=== PATIENT | female | born 1995 | race Caucasian/White ===

== ENCOUNTER 2018-05-10 05:43 | Inpatient (IN) | payer MEDICAID, OTHER ==
[2018-05-10] VITALS (9 sets, daily range): BP systolic 104–121; BP diastolic 46–69
[~2018-05-10] VITALS: Ht 165.1 cm; Wt 106.6 kg
--- NOTE | 2018-05-10 05:56 | NUR ---
TO ER BED 1 C/O GENERALIZED RT ABDOMINAL PAIN SINCE EARLIER THIS MORNING. AA/OX X4. +N/V/-D. SKIN PALE, WARM, MOIST. +GAURDING TO STOMACH, PAIN RADIATES TO BACK. 7/10 PAIN. NO S/S SOB. AMBULATED TO BED WITH STABLE GAIT. MOVES ALL EXTREMITIES WELL. NAD. VSS. STABLE CONIDION. WILL CONTINUE TO MONITOR.
[2018-05-10] MEDS ORDERED: ONDANSETRON HCL/PF 4 MG/2 ML VIAL ONE (06:22)
[2018-05-10] MEDS ORDERED: MORPHINE SULFATE INJ 4 MG/ML DISP.SYRIN ONE (06:22)
[2018-05-10] MEDS ORDERED: ONDANSETRON HCL/PF 4 MG/2 ML VIAL IVP ONE (06:30)
[2018-05-10] MEDS ORDERED: IV NS 0.9% 1,000 ML BAG IV ONE (06:30)
[2018-05-10] MEDS ORDERED: MORPHINE SULFATE INJ 2 MG/ML DISP.SYRIN IV ONE (06:30)
[2018-05-10 06:39] LABS: APPEARANCE,URINE SL CLOUDY (CLEAR); BILIRUBIN,URINE NEGATIVE (NEGATIVE); BLOOD, URINE NEGATIVE Ery/uL (NEGATIVE); COLOR,URINE YELLOW (YELLOW); KETONES,URINE NEGATIVE (NEGATIVE); LEUKOCYTE ESTERASE ,URINE NEGATIVE (NEGATIVE); NITRITE, URINE NEGATIVE (NEGATIVE); PROTEIN,URINE NEGATIVE (NEGATIVE); UGLUCOSE NEGATIVE (NEGATIVE); UROBILINOGEN,URINE 0.2 EU/dL (0.2)
[2018-05-10 06:41] LABS: BASOPHILS # (AUTO) 0.1 /CMM (0.0-0.2); BASOPHILS % (AUTO) 0.8 % (0.0-2.0); EOSINOPHILS % (AUTO) 0.5 % (0.0-6.0); HEMATOCRIT 34 % (33-45); HEMOGLOBIN 10.9 g/dL (11.5-14.8); LYMPHOCYTES # (AUTO) 1.3 /CMM (0.8-4.8); LYMPHOCYTES % (AUTO) 9.8 % (20.0-44.0); MEAN CORPUSCULAR HGB CONC 32 g/dl (31.0-36.0); MEAN CORPUSCULAR VOLUME 81 fL (82-100); MONOCYTES # (AUTO) 0.5 /CMM (0.1-1.30); NEUTROPHILS # (AUTO) 11.2 /CMM (1.8-8.9); NEUTROPHILS % (AUTO) 84.9 % (43.0-81.0); PLATELET COUNT (AUTO) 333 /CMM (150-450); RDW COEFFICIENT OF VARIATION 15.9 (11.5-15.0); RED BLOOD CELL COUNT(AUTO) 4.25 MIL/uL (4.0-5.2); WHITE BLOOD COUNT (AUTO) 13.3 K/uL (4.3-11.0)
[2018-05-10 06:48] LABS: CALCIUM, SERUM 9.4 mg/dL (8.5-10.1); CREATININE 0.7 mg/dL (0.6-1.3); POTASSIUM 3.9 mmol/L (3.5-5.1)
[2018-05-10 06:54] LABS: ALBUMIN 3.8 g/dL (3.4-5.0); BILIRUBIN,TOTAL 0.3 mg/dL (0.2-1.0); TOTAL PROTEIN, SERUM 8.3 g/dL (6.4-8.2)
[2018-05-10] MEDS ORDERED: HYDROMORPHONE 1 MG/1 ML DISP.SYRIN ONE (06:59)
[2018-05-10] MEDS ORDERED: HYDROMORPHONE INJ 2 MG/ML DISP.SYRIN IV ONE (07:00)
--- NOTE | 2018-05-10 07:04 | NUR ---
RESTING COMFORTABLY WITH FAMILY AT BEDSIDE. NAD. VSS. STABLE CONDITION. WILL CONTINUE TO MONITOR.
--- NOTE | 2018-05-10 07:14 | NUR ---
ENDORSED TO ON COMING SHIFT DANELLE MILLER. PT STABLE CONDITION. VSS. NAD.
--- NOTE | 2018-05-10 07:22 | NUR ---
BROUGHT TO CT
[2018-05-10] MEDS ORDERED: PIPERACILLIN /TAZOBACTAM 3.375 G in IV D5W 50 ML IV ONE (08:00)
--- NOTE | 2018-05-10 08:15 | NUR ---
paged : [employer] - [facility] paged: Dr. Jermaine Marcial - paged - left a message on his phone
[2018-05-10] MEDS ORDERED: IV NS 0.9% 1,000 ML IV PRN (08:26)
[2018-05-10] MEDS ORDERED: ONDANSETRON HCL/PF 4 MG/2 ML VIAL IVP PRN (08:30)
[2018-05-10] MEDS ORDERED: ACETAMINOPHEN 325 MG TABLET PO PRN (08:30)
[2018-05-10] MEDS ORDERED: Z GUARD REMEDY 2 OZ OINT TP PRN (08:30)
[2018-05-10] MEDS ORDERED: HYDROCODONE/APAP 5/325MG 1 EACH TABLET PO PRN (08:30)
[2018-05-10] MEDS ORDERED: ZOLPIDEM TARTRATE 5 MG TABLET PO PRN (08:30)
[2018-05-10] MEDS ORDERED: MAG HYDROX/AL HYDROX/SIMETH 30 ML UDC PO PRN (08:30)
[2018-05-10] MEDS ORDERED: MAGNESIUM HYDROXIDE 30 ML UDC PO PRN (08:30)
--- NOTE | 2018-05-10 08:43 | NUR ---
REPORT GIVEN TO JOSE MCCLENDON FOR FLOR
--- NOTE | 2018-05-10 09:00 | NUR ---
MS AIRCRAFT FUELER NOTE RECEIVED PT FROM ER VIA [employer]. PT IS ALERT AND ORIENTED X 4. BREATHING IS EVEN AND UNLABORED ON 2 LC NC. PT DENIES CHEST PAIN AND SOB, REPORTS NAUSEA AND PAIN LEVEL 6/10 IN THE RLQ, AGGRAVATED BY MOVEMENT. L HAND #18G IV IS SALINE LOCKED, CLEAN, DRY AND INTACT AND WITHOUT REDNESS OR SWELLING. ID BAND CHECKED AND PLACED ON PT, ALL BELONGINGS ACCOUNTED FOR. NPO STATUS IS MAINTAINED, PENDING ADMISSION ORDERS.
[2018-05-10] MEDS ORDERED: MORPHINE SULFATE INJ 2 MG/ML DISP.SYRIN IVP PRN (10:00)
[2018-05-10] MEDS: IV NS 0.9% 1,000 ML IV PRN (10:22)
[2018-05-10] MEDS ORDERED: FENTANYL PF 100MCG/2ML AMPUL ONE (12:35)
[2018-05-10] MEDS ORDERED: ROCURONIUM BROMIDE 50 MG/5 ML ONE (12:36)
[2018-05-10] MEDS ORDERED: METOCLOPRAMIDE HCL 10 MG/2 ML VIAL ONE (12:36)
[2018-05-10] MEDS ORDERED: MIDAZOLAM HCL 2 MG/2ML VIAL ONE (12:36)
[2018-05-10] MEDS ORDERED: ANESTHESIA TRAY IN PYXIS 1 EA TRAY MC ONE (12:53)
[2018-05-10] MEDS ORDERED: LIDOCAINE 1% INJ 50 ML MDV IJ ONE (12:54)
[2018-05-10] MEDS: PIPERACILLIN /TAZOBACTAM 4.5 G in IV D5W 50 ML IV SCH ×3 (12:54→23:02)
[2018-05-10] MEDS ORDERED: BUPIVACAINE MPF 0.5% W/EPI INJ 30 ML VIAL ONE (12:55)
[2018-05-10] MEDS ORDERED: LIDOCAINE HCL/PF 1% 30 ML SDV ONE (12:55)
[2018-05-10 13:40] LABS: INR 0.96 (0.87-1.13)
--- NOTE | 2018-05-10 14:00 | NUR ---
MS RN PT OFF UNIT PT OFF UNIT FOR SURGERY. CONSENT IS SIGNED, VS STABLE, PRE OP CHECK LIST COMPLETE AND PLACED IN CHART.
--- NOTE | 2018-05-10 16:15 | NUR ---
MS RN PT BACK FROM SURGERY PT BACK FROM SURGERY. VS STABLE, REPORTS PAIN 0/10. PENDING POST OP ORDERS. WILL CONTINUE TO MONITOR.
--- NOTE | 2018-05-10 19:27 | NUR ---
MS RN CLOSING NOTE PT IN BED SLEEPING, BREATHING IS EVEN AND UNLABORED ON ROOM AIR, NO SIGNS OF ACUTE DISTRESS AT THIS TIME. R FA #20G IV IS INFUSING NS @ 125ML/HR WITHOUT REDNESS OR SWELLING. BED IS LOCKED AND IN LOWEST POSITION, SIDE RAILS UP X2, CALL LIGHT WITHIN REACH. ENDORSED TO CRYPTOGRAPHIC VULNERABILITY ANALYST RN FOR CONTINUITY OF CARE.
--- NOTE | 2018-05-10 19:30 | NUR ---
MS RN OPENING NOTES Received patient asleep on Semi-Benson's position with patent peripheral IV line RFA G#20 with Ns infusing well @ 125ml/hr as ordered. No signs of discomfort noted at this time, breathing even and unlabored, on RA. Call light at easy reach. Will continue to monitor accordingly.
[2018-05-11] MEDS: IV NS 0.9% 1,000 ML IV PRN ×2 (00:59→17:07)
[2018-05-11] MEDS: PIPERACILLIN /TAZOBACTAM 4.5 G in IV D5W 50 ML IV SCH ×4 (05:14→23:31)
--- NOTE | 2018-05-11 06:47 | NUR ---
MS RN CLOSING NOTES Patient asleep on semi-Benson's position with patent peripheral IV line RFA G#20 with NS infusing well @ 125ml/hr as ordered. Denies discomfort at this time. All needs attended. Kept clean, dry and comfortable. Endorsed to the next shift.
[2018-05-11 07:08] LABS: BASOPHILS % (AUTO) 0.1 % (0.0-2.0); EOSINOPHILS % (AUTO) 0.1 % (0.0-6.0); HEMATOCRIT 30 % (33-45); HEMOGLOBIN 9.9 g/dL (11.5-14.8); LYMPHOCYTES # (AUTO) 1.3 /CMM (0.8-4.8); LYMPHOCYTES % (AUTO) 14.6 % (20.0-44.0); MEAN CORPUSCULAR HGB CONC 33 g/dl (31.0-36.0); MEAN CORPUSCULAR VOLUME 81 fL (82-100); MONOCYTES # (AUTO) 0.6 /CMM (0.1-1.30); MONOCYTES % (AUTO) 7.5 % (2.0-12.0); NEUTROPHILS # (AUTO) 6.7 /CMM (1.8-8.9); NEUTROPHILS % (AUTO) 77.7 % (43.0-81.0); PLATELET COUNT (AUTO) 291 /CMM (150-450); RDW COEFFICIENT OF VARIATION 16.4 (11.5-15.0); RED BLOOD CELL COUNT(AUTO) 3.75 MIL/uL (4.0-5.2); WHITE BLOOD COUNT (AUTO) 8.6 K/uL (4.3-11.0)
--- NOTE | 2018-05-11 07:30 | NUR ---
RN OPENING NOTES RECEIVED PATIENT IN BED RESTING, A/OX4, ABLE TO MAKE NEEDS KNOWN. NO ACUTE DISTRESS, NO SOB. DENIED PAIN OR DISCOMFORT AT THE MOMENT. IV SITE INTACT AND PATENT. KEPT PATIENT SAFE AND COMFORTABLE. BED IN LOW/LOCKED POSITION, SEMIFOWLERS, SIDERAILS UPX2, CALL LIGHT IN REACH. WILL CONTINUE TO MONITOR ACCORDINGLY.
[2018-05-11 07:31] LABS: ALBUMIN 2.8 g/dL (3.4-5.0); BILIRUBIN,TOTAL 0.5 mg/dL (0.2-1.0); CALCIUM, SERUM 8.4 mg/dL (8.5-10.1); CREATININE 0.8 mg/dL (0.6-1.3); MAGNESIUM 1.8 mg/dL (1.8-2.4); PHOSPHORUS 3.8 mg/dL (2.5-4.9); POTASSIUM 3.4 mmol/L (3.5-5.1); TOTAL PROTEIN, SERUM 6.8 g/dL (6.4-8.2)
[2018-05-11 08:00] VITALS: BP 122/66
--- NOTE | 2018-05-11 08:30 | NUR ---
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 0845: NOTIFIED DR IRVIN REGARDING KEFLEX AND PATIENT IS NURSING HER BABY. "I'LL CHECK", PER MD. 1000: PER PHARMACIST LIV, KEFLEX IS OK FOR NURSING MOTHERS.
[2018-05-11] MEDS: PANTOPRAZOLE 40 MG TABLET.DR PO SCH (08:32)
[2018-05-11] MEDS ORDERED: POTASSIUM CHLORIDE 20 MEQ TAB.PRT.SR PO ONE (10:00)
[2018-05-11 16:00] VITALS: BP 109/49
--- NOTE | 2018-05-11 16:51 | NUR ---
RN NOTES VERIFIED DR PHIL BASS IF PATIENT IS CLEARED FOR DISCHARGE. PER DR BASS, PATEINT HAS MICROPERF AND NEEDS 2-3 DAYS IV ABX. NOTIFIED SHELLI HANKINS TO HOLD DISCHARGE PER DR IRVIN.
--- NOTE | 2018-05-11 19:32 | NUR ---
RN CLOSING NOTES PATIENT IN STABLE CONDITION. ALL NEEDS ATTENDED AND PROVIDED. ALL DUE MEDS GIVEN ORDERED. KEPT PATIENT SAFE AND COMFORTABLE. BED IN LOW/LOCKED POSITION, HOB ELEVATED, SIDERAILS UPX2, CALL LIGHT IN REACH. ENDORSED TO NIGHT RN FOR FLOR
--- NOTE | 2018-05-11 19:43 | NUR ---
RN MS OPENING NOTES RECEIVED PATIENT IN BED AWAKE. ALERT AND ORIENTED X4. BREATHING EVEN AND UNLABORED. NO SOB NOTED. ON ROOM AIR. TOLERATING WELL. IV ACCESS INTACT AND PATENT INFUSING NS @ 125ML/HR. CURRENTLY WITH NO COMPLAINTS OF PAIN OR DISCOMFORT. SKIN DRY AND WARM TO TOUCH. AFEBRILE. ALL OTHER NEEDS ATTENDED TO. SAFETY MEASURES IN PLACE. CALL LIGHT WITHIN REACH. WILL CONTINUE TO MONITOR.
[2018-05-11 20:00] VITALS: BP 118/64
--- NOTE | 2018-05-12 01:25 | NUR ---
RN MS NOTES CARE GIVEN TO DANELLE TUCKER. PATIENT IS SLEEPING, IN STABLE CONDITION. BREATHING EVEN AND UNLABORED. NO SOB NOTED -TOLERATING ROOM AIR. ALL OTHER NEEDS ATTENDED TO. SAFETY MEASURES IN PLACE. CALL LIGHT WITHIN REACH.
--- NOTE | 2018-05-12 01:30 | NUR ---
RN NOTES Received report from DANELLE Multani. Patient in bed, sleeping soundly. Breathing even and unlabored. Not in any distress. Peripheral IV infusing at 125mL/hr. As per DANELLE Multani, patient requested to turn off SCD pumps as she could not sleep. Call fonseca within reach. Bed in low, locked position. Will continue to monitor accordingly
[2018-05-12] MEDS: IV NS 0.9% 1,000 ML IV PRN (04:13)
[2018-05-12] MEDS: PIPERACILLIN /TAZOBACTAM 4.5 G in IV D5W 50 ML IV SCH ×2 (05:08→11:55)
--- NOTE | 2018-05-12 06:51 | NUR ---
RN CLOSING NOTES Patient in bed, alert, oriented x 4. Breathing even and unlabored. Not in any distress. Patient able to ambulate to the bathroom. Peripheral IV of NS at 125mL/hr. No complaints as of this time. All needs attended to. All due medications given as ordered. Call fonseca within reach. Bed in low, locked position. Will endorse FLOR to oncoming RN.
[2018-05-12 08:00] VITALS: BP 127/66
--- NOTE | 2018-05-12 08:00 | NUR ---
RN MS AM NOTES RECEIVED PATIENT IN BED AWAKE. ALERT AND ORIENTED X4. BREATHING EVEN AND UNLABORED. NO SOB NOTED. ON ROOM AIR. TOLERATING WELL. IV ACCESS INTACT AND PATENT INFUSING NS @ 125ML/HR. CURRENTLY WITH NO COMPLAINTS OF PAIN OR DISCOMFORT.WITH BRP. SKIN DRY AND WARM TO TOUCH. AFEBRILE. NEEDS ATTENDED TO. SAFETY MEASURES IN PLACE. CALL LIGHT WITHIN REACH. WILL CONTINUE TO MONITOR.
[2018-05-12] MEDS: PANTOPRAZOLE 40 MG TABLET.DR PO SCH (08:34)
--- NOTE | 2018-05-12 14:30 | NUR ---
DISCHARGED PT HOME VIA PRIVATE CAR WITH STABLE V/S ACCOMPANIED BY HER .PT COMPLETED HER IV ATB AND REMOVED IV H/L WITHOUT BLEEDING NOTED.DISCHARGE INSTRUCTIONS,MEDS,RX AND HEALTH TEACHING GIVEN TO THE PT.
== END 2018-05-12 14:45 | disposition home or self-care (01) | DRG 233 ==
LOC: ER 05:46 → MED 08:43
PROVIDERS: ADMIT Internal Medicine; ATTEND Internal Medicine
PROC: 0DTJ4ZZ Resection of Appendix, Percutaneous Endoscopic Approach (ICD-10-PCS; principal; 2018-05-10 13:00)
DX: K35.30 Acute appendicitis with localized peritonitis, without perforation or gangrene (principal); E87.1 Hypo-osmolality and hyponatremia; E66.9 Obesity, unspecified; Z68.39 Body mass index [BMI] 39.0-39.9, adult; K38.1 Appendicular concretions; Z98.891 History of uterine scar from previous surgery; Z98.890 Other specified postprocedural states
CPT/HCPCS: 36415; 80048-TC; 80053-TC; 80061-TC; 80076-TC; 81000-TC; 83605-TC; 83690-TC; 83735-TC; 84100-TC; 84702-TC; 84703-TC; 85025-TC; 85730-TC; 86850-TC; 87040-TC; 87081-TC; 88304-TC; A4606; J1170; J1885; J2250; J2270; J2405; J2543; J2704; J2765; J3010; J3490; J7030; J7060; Q2036; Z7610